=== PATIENT | male | born 1990 | race Caucasian/White ===

== ENCOUNTER 2017-09-13 20:07 | Emergency (ER) | payer OTHER ==
[~2017-09-13] VITALS: Ht 182.9 cm; Wt 99.8 kg
[~2017-09-13 20:07] MED LIST: AUGMENTIN 875 M1 TAB PO; PERCOCET 325 MG1 TA2 PO
[2017-09-13] MEDS ORDERED: SUBOXONE 8 MG-1 EACH SL (21:18)
[2017-09-13] MEDS ORDERED: HYDROCHLOROTH12.5 M2 PO (21:18)
[2017-09-13] MEDS ORDERED: CLONAZEPAM1 M2 PO (21:18)
[2017-09-13] MEDS ORDERED: LISINOPRIL40 M1 PO (21:19)
[2017-09-13] MEDS ORDERED: AMLODIPINE BESY10 M1 PO (21:19)
--- NOTE | 2017-09-13 22:53 | ED GENERAL ADULT ---
History of Present Illness General Chief Complaint: Sore Throat, Dental Pain Stated Complaint: SORE THROAT, EAR PAIN Source: patient Exam Limitations: no limitations Vital Signs & Intake/Output Vital Signs & Intake/Output Vital Signs Date Time Temp Pulse Resp B/P B/P Pulse O2 O2 Flow FiO2 Mean Ox Delivery Rate 09/133 98.7 97 18 163/100 100 09/14 2023 97.9 108 18 151/89 99 Room Air Allergies Coded Allergies: NO KNOWN ALLERGIES (11/16/10) Triage Note: PT TO ER C/C 2 DAY HX OF LEFT EAR PAIN AND SORE THROAT Triage Nurses Notes Reviewed? yes Onset: Gradual Duration: day(s): Timing: constant HPI: 27 y/o otherwise healthy male presenting with fevers, sore throat, and left ear fullness x2 days. Daughter and recently dx with positive strep. Denies rhinorrhea, nasal congestion, cough, CP, SOB, abd pain, NVD, dysuria. (Venus Hooper) Reconcile Medications Amlodipine Besylate 10 MG TABLET 1 TAB PO DAILY BP (Reported) Buprenorphine HCl/Naloxone HCl (Suboxone 8 MG-2 MG Sl Film) 8 MG-2 MG FILM 1 STR SL TID MENTAL HEALTH (Reported) Clonazepam 1 MG TABLET 1 TAB PO 2XW PRN ANXIETY (Reported) Hydrochlorothiazide 12.5 MG TABLET 1 TAB PO DAILY BP (Reported) Lisinopril 40 MG TABLET 1 TAB PO DAILY BP (Reported) Penicillin V Potassium 500 MG TABLET 1 TAB PO BID strep (Deon CLARKE,Jacinto) Past History Travel History Traveled to [place] past 21 day No Medical History Any Pertinent Medical History? 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 No (Venus Hooper) Review of Systems Review of Systems Constitutional: Reports: see HPI. EENTM: Reports: see HPI. Respiratory: Reports: no symptoms. Cardiovascular: Reports: no symptoms. GI: Reports: no symptoms. Genitourinary: Reports: no symptoms. Musculoskeletal: Reports: no symptoms. Skin: Reports: no symptoms. Neurological/Psychological: Reports: no symptoms. Hematologic/Endocrine: Reports: no symptoms. Immunologic/Allergic: Reports: no symptoms. (Venus Hooper) Physical Exam Physical Exam General Appearance: well developed/nourished, no apparent distress, alert, awake , comfortable Head: atraumatic, normal appearance Eyes: Bilateral: normal appearance. Ears, Nose, Throat: Symmetrically enlarged tonsils with +erythema, no exudates. Uvula midlines. Bilateral TM's with good light reflex. Neck: normal inspection, supple, full range of motion, +Anterior cervical LAD Respiratory: normal breath sounds, lungs clear Cardiovascular: regular rate/rhythm Gastrointestinal: soft, non-tender Back: normal inspection Extremities: normal inspection Neurologic/Psych: awake, alert, oriented x 3, normal gait, normal mood/affect Skin: intact, normal color, warm/dry Core Measures ACS in differential dx? No CVA/TIA Diagnosis: No Sepsis Present: No Sepsis Focused Exam Completed? 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 Will tx with rx penicillin given 2 recent confirmed exposures. Counseled on supportive care and strict return precautions. Initial ED EKG: none (Venus Hooper) Departure Departure Disposition: HOME OR SELF CARE Condition: Stable Clinical Impression Primary Impression: Pharyngitis Referrals: Rachid Mensah MD (PCP/Family) Additional Instructions: Take penicillin as prescribed. Use magic mouthwash as needed for pain. Use tylenol as needed for fevers. Follow up with your primary care provider for re- evaluation. Return to the emergency department for any new or worsening symptoms. Departure Forms: Customer Survey General Discharge Information (Venus Hooper) Departure Prescriptions: Current Visit Scripts Penicillin V Potassium 1 TAB PO BID #20 TAB PA/HAND CROWN POUNCER Co-Sign Statement Statement: ED Attending supervision documentation- I saw and evaluated the patient. I have also reviewed all the pertinent lab results and diagnostic results. I agree with the findings and the plan of care as documented in the PA's/HAND CROWN POUNCER's documentation. x I have reviewed the ED Record and agree with the PA's/HAND CROWN POUNCER's documentation. [] Additions or exceptions (if any) to the PAs/HAND CROWN POUNCER's note and plan are summarized below: [] (Deon CLARKE,Jacinto) Critical Care Note Critical Care Note Critical Care Time: non-applicable (Umberto DEAL,Venus)
[2017-09-13] MEDS ORDERED: PENICILLIN V P500 M1 PO (23:02)
[2017-09-13 23:03] VITALS: BP 163/100
== END 2017-09-13 23:13 ==
LOC: ERH 20:07
DX: J02.9 Acute pharyngitis, unspecified (principal); F17.210 Nicotine dependence, cigarettes, uncomplicated
CPT/HCPCS: 96372; J1885

== ENCOUNTER 2017-12-13 20:34 | Emergency (ER) | payer OTHER ==
[~2017-12-13 20:34] MED LIST changes: +AMLODIPINE BESY10 M1 PO; +CLONAZEPAM1 M2 PO; +HYDROCHLOROTH12.5 M2 PO; +LISINOPRIL40 M1 PO; +PENICILLIN V P500 M1 PO; +SUBOXONE 8 MG-1 EACH SL
== END 2017-12-13 21:40 | disposition admitted as inpatient to this hospital (09) ==
LOC: ERH 20:34
DX: R50.9 Fever, unspecified (principal); R00.0 Tachycardia, unspecified